=== PATIENT | female | born 1955 | race Caucasian/White ===

== ENCOUNTER 2022-08-01 11:31 | Emergency (ER) | payer OTHER, BC ==
[~2022-08-01] VITALS: Ht 154.9 cm; Wt 59.9 kg
[2022-08-01] MEDS ORDERED: SYNTHROID50 MCG PO (12:42)
[2022-08-01] MEDS ORDERED: CYMBALTA60 MG PO (12:43)
[2022-08-01] MEDS ORDERED: ZYRTEC10 M3 PO (12:43)
[2022-08-01] MEDS ORDERED: VITAMIN B-121000 MC4 PO (12:43)
[2022-08-01] MEDS ORDERED: TUSNEL LIQUID178 ML PO (16:14)
[2022-08-01] MEDS ORDERED: DOLOGEN CAPLET1 EACH PO (16:14)
[2022-08-01] MEDS ORDERED: ZITHROMAX500 MG PO (16:14)
== END 2022-08-01 16:18 | disposition home or self-care (01) ==
LOC: ER 11:31
DX: U07.1 COVID-19 (principal); Z20.822 Contact with and (suspected) exposure to COVID-19